=== PATIENT | female | born 1995 | race Caucasian/White ===

== ENCOUNTER → 2021-11-27 | Outpatient (CLI) | payer OTHER ==
[2021-11-27 18:42] LABS: BASO # 0.02 K/mm3 (0.02-0.10); EOS # 0.24 K/mm3 (0.04-0.40); EOS % 2.4 % (1.0-5.0); HEMATOCRIT 40.3 % (37.0-47.0); HEMOGLOBIN 12.3 g/dL (12.5-16.0); LYMPH# 2.92 K/mm3 (1.50-4.00); MEAN CELL VOLUME 84 fl (78-100); MEAN CORPUSCULAR HEMOGLOBIN 26 pg (27-31); MEAN CORPUSCULAR HGB CONC 31 g/dL (33-37); MEAN PLATELET VOLUME 9.1 fl (7.4-10.4); MONO # 0.73 K/mm3 (0.20-0.80); NEU # 5.95 K/mm3 (1.40-6.50); PLATELET COUNT 329 K/mm3 (130-400); RED BLOOD COUNT 4.78 M/mm3 (4.10-5.30); RED CELL DISTRIBUTION WIDTH 15.7 % (11.5-14.5); WHITE BLOOD COUNT 9.9 K/mm3 (4.8-10.8)
[2021-11-27 18:47] LABS: POTASSIUM 4.2 mmol/L (3.5-5.1)
[2021-11-27 18:48] LABS: CALCIUM 9.6 mg/dL (8.3-10.5)
[2021-11-27 18:50] LABS: TOTAL PROTEIN 7.6 g/dL (6.4-8.3)
[2021-11-27 18:51] LABS: TOTAL BILIRUBIN 0.2 mg/dL (0.2-1.2)
[2021-11-27 20:26] LABS: ERYTHROCYTE SEDIMENTATION RATE 20 mm/hr (0-20)
[2021-11-30 05:53] LABS: BEEF (COW) ALLERGEN COUNT <0.10 kU/L (()); CHOCOLATE ALLERGEN COUNT <0.10 kU/L (()); CORN ALLERGEN COUN <0.10 kU/L (()); FISH-SHELLFISH MIX ALLGN COUNT <0.10 kU/L (()); MILK ALLERGEN COUNT <0.10 kU/L (()); PORK ALLERGEN COUNT <0.10 kU/L (()); WHEAT ALLERGEN COUNT <0.10 kU/L (())
[2021-11-30 23:11] LABS: C-ANCA 18 U/mL (0-99)
== END ==
LOC: LAB 17:44
PROVIDERS: Family Medicine
DX: T78.1XXA Other adverse food reactions, not elsewhere classified, initial encounter (principal); B37.3 Candidiasis of vulva and vagina; E66.9 Obesity, unspecified; Z84.81 Family history of carrier of genetic disease; R89.8 Other abnormal findings in specimens from other organs, systems and tissues

== ENCOUNTER → 2021-11-29 | Outpatient (CLI) | payer OTHER ==
[2021-12-01 15:52] LABS: ANA SCREEN with REFLEX Negative (Negative)
== END ==
LOC: LAB 16:38
PROVIDERS: Family Medicine
DX: D68.59 Other primary thrombophilia (principal); J84.81 Lymphangioleiomyomatosis; R70.0 Elevated erythrocyte sedimentation rate

== ENCOUNTER → 2022-06-05 | Outpatient (CLI) | payer OTHER | LOC: LAB 16:28 | DX: E78.5 Hyperlipidemia, unspecified (principal); E55.9 Vitamin D deficiency, unspecified; R73.9 Hyperglycemia, unspecified ==

== ENCOUNTER → 2023-06-04 | Outpatient (CLI) | payer OTHER | LOC: LAB 12:07 | DX: J02.9 Acute pharyngitis, unspecified (principal) ==

== ENCOUNTER → 2023-11-10 | Outpatient (CLI) | payer OTHER ==
[2023-11-10 17:35] LABS: BASO # 0.03 K/mm3 (0.02-0.10); EOS # 0.19 K/mm3 (0.04-0.40); EOS % 1.5 % (1.0-5.0); HEMATOCRIT 41.8 % (37.0-47.0); HEMOGLOBIN 13.3 g/dL (12.5-16.0); LYMPH# 4.05 K/mm3 (1.50-4.00); MEAN CELL VOLUME 88 fl (78-100); MEAN CORPUSCULAR HEMOGLOBIN 28 pg (27-31); MEAN CORPUSCULAR HGB CONC 32 g/dL (33-37); MEAN PLATELET VOLUME 9.2 fl (7.4-10.4); MONO # 0.64 K/mm3 (0.20-0.80); NEU # 7.55 K/mm3 (1.40-6.50); PLATELET COUNT 299 K/mm3 (130-400); RED BLOOD COUNT 4.75 M/mm3 (4.10-5.30); WHITE BLOOD COUNT 12.5 K/mm3 (4.8-10.8)
[2023-11-10 17:40] LABS: ALBUMIN 4.3 g/dL (3.5-5.0)
[2023-11-10 17:41] LABS: CALCIUM 9.9 mg/dL (8.3-10.5)
[2023-11-10 17:42] LABS: TOTAL PROTEIN 7.9 g/dL (6.4-8.3)
[2023-11-10 17:44] LABS: TOTAL BILIRUBIN 0.2 mg/dL (0.2-1.2)
== END ==
LOC: LAB 17:14
PROVIDERS: Family Medicine
DX: R73.9 Hyperglycemia, unspecified (principal); R03.0 Elevated blood-pressure reading, without diagnosis of hypertension; E03.9 Hypothyroidism, unspecified; E78.5 Hyperlipidemia, unspecified; E55.9 Vitamin D deficiency, unspecified

== ENCOUNTER → 2024-02-25 | Outpatient (CLI) | payer OTHER ==
[2024-02-25 16:22] LABS: BASO # 0.03 K/mm3 (0.02-0.10); EOS # 0.19 K/mm3 (0.04-0.40); EOS % 1.8 % (1.0-5.0); HEMATOCRIT 38.9 % (37.0-47.0); HEMOGLOBIN 12.3 g/dL (12.5-16.0); LYMPH# 3.47 K/mm3 (1.50-4.00); MEAN CELL VOLUME 90 fl (78-100); MEAN CORPUSCULAR HEMOGLOBIN 29 pg (27-31); MEAN CORPUSCULAR HGB CONC 32 g/dL (33-37); MEAN PLATELET VOLUME 9.1 fl (7.4-10.4); MONO # 0.69 K/mm3 (0.20-0.80); NEU # 6.18 K/mm3 (1.40-6.50); PLATELET COUNT 271 K/mm3 (130-400); RED BLOOD COUNT 4.32 M/mm3 (4.10-5.30); RED CELL DISTRIBUTION WIDTH 13.2 % (11.5-14.5); WHITE BLOOD COUNT 10.6 K/mm3 (4.8-10.8)
== END ==
LOC: LAB 16:11
PROVIDERS: Nurse Practitioner
DX: E55.9 Vitamin D deficiency, unspecified (principal); D72.829 Elevated white blood cell count, unspecified

== ENCOUNTER → 2024-03-06 | Outpatient (CLI) | payer OTHER | LOC: RAD 14:10 | DX: S99.921A Unspecified injury of right foot, initial encounter (principal); S89.91XA Unspecified injury of right lower leg, initial encounter; X58.XXXA Exposure to other specified factors, initial encounter ==

== ENCOUNTER → 2024-06-14 | Outpatient (REF) | payer OTHER | LOC: LAB 16:41 | DX: J02.9 Acute pharyngitis, unspecified (principal) ==

== ENCOUNTER → 2024-10-05 | Outpatient (CLI) | payer OTHER ==
[2024-10-05 16:20] LABS: BASO # 0.01 K/mm3 (0.02-0.10); EOS # 0.38 K/mm3 (0.04-0.40); EOS % 4.4 % (1.0-5.0); HEMATOCRIT 39.2 % (37.0-47.0); HEMOGLOBIN 12.7 g/dL (12.5-16.0); LYMPH# 2.98 K/mm3 (1.50-4.00); MEAN CELL VOLUME 88 fl (78-100); MEAN CORPUSCULAR HEMOGLOBIN 29 pg (27-31); MEAN CORPUSCULAR HGB CONC 32 g/dL (33-37); MEAN PLATELET VOLUME 9.5 fl (7.4-10.4); MONO # 0.66 K/mm3 (0.20-0.80); NEU # 4.55 K/mm3 (1.40-6.50); PLATELET COUNT 283 K/mm3 (130-400); RED BLOOD COUNT 4.44 M/mm3 (4.10-5.30); WHITE BLOOD COUNT 8.6 K/mm3 (4.8-10.8)
[2024-10-05 16:26] LABS: CALCIUM 9.3 mg/dL (8.3-10.5)
[2024-10-05 16:27] LABS: TOTAL PROTEIN 7.6 g/dL (6.4-8.3)
[2024-10-05 16:29] LABS: TOTAL BILIRUBIN 0.4 mg/dL (0.2-1.2)
== END ==
LOC: LAB 16:07
PROVIDERS: Family Medicine
DX: D50.9 Iron deficiency anemia, unspecified (principal)

== ENCOUNTER → 2024-11-23 | Outpatient (CLI) | payer OTHER ==
[2024-11-23 10:11] LABS: BASO # 0.02 K/mm3 (0.02-0.10); EOS # 0.26 K/mm3 (0.04-0.40); EOS % 2.8 % (1.0-5.0); HEMATOCRIT 41.2 % (37.0-47.0); HEMOGLOBIN 13.1 g/dL (12.5-16.0); LYMPH# 3.42 K/mm3 (1.50-4.00); MEAN CELL VOLUME 89 fl (78-100); MEAN CORPUSCULAR HEMOGLOBIN 28 pg (27-31); MEAN CORPUSCULAR HGB CONC 32 g/dL (33-37); MEAN PLATELET VOLUME 9.3 fl (7.4-10.4); MONO # 0.42 K/mm3 (0.20-0.80); NEU # 5.02 K/mm3 (1.40-6.50); PLATELET COUNT 313 K/mm3 (130-400); RED BLOOD COUNT 4.61 M/mm3 (4.10-5.30); WHITE BLOOD COUNT 9.2 K/mm3 (4.8-10.8)
[2024-11-23 10:13] LABS: CALCIUM 8.9 mg/dL (8.3-10.5)
[2024-11-23 10:14] LABS: TOTAL PROTEIN 7.9 g/dL (6.4-8.3)
[2024-11-23 10:16] LABS: TOTAL BILIRUBIN 0.3 mg/dL (0.2-1.2)
[2024-11-24 17:38] LABS: FOLLICLE STIMULATING HORMONE 9.2 mIU/mL (()); LUTENIZING HORMONE 5.4 mIU/mL (()); PROGESTERONE 0.1 ng/mL (())
== END ==
LOC: LAB 09:44
PROVIDERS: Family Medicine
DX: E66.9 Obesity, unspecified (principal); E55.9 Vitamin D deficiency, unspecified; I10 Essential (primary) hypertension; N91.1 Secondary amenorrhea